=== PATIENT | female | born 1975 | race African-American/Black ===

== ENCOUNTER 2016-12-31 12:30 | Emergency (ER) | payer OTHER ==
[2016-12-31 13:22] LABS: BASOPHIL 0.2 % (0-2); EOSINOPHIL 1.9 % (0-5); HCT 32.3 % (37.0-47.0); HGB 10.4 g/dl (12.5-16.0); LYMPHOCYTE 18.7 % (15-48); MCH 21.5 pg (25.0-31.0); MCHC 32.2 g/dL (32.0-36.0); MCV 66.7 fL (78.0-100.0); MONOCYTE 4.4 % (0-12); MPV 9.8 fL (6.0-9.5); NEUTROPHIL 74.8 % (41-80); PLT 322 K/uL (150-400); RBC 4.84 M/uL (4.20-5.40); RDW 17.1 % (11.5-14.0); WBC 17.8 K/uL (4.0-10.5)
[2016-12-31 13:36] LABS: ALBUMIN 3.9 g/dL (3.5-5.0); BILIRUBIN - TOTAL 0.2 mg/dL (0.1-1.0); GLOBULIN (CALCULATION) 2.9 g/dL (2.2-4.2); POTASSIUM 3.7 mmol/L (3.5-5.1); TOTAL PROTEIN 6.8 g/dL (6.4-8.3)
== END 2016-12-31 19:20 | disposition home or self-care (01) ==
LOC: FER 12:30
PROVIDERS: Emergency Medicine
DX: R06.02 Shortness of breath (principal); R05 Cough
CPT/HCPCS: 36415; 36600; 71020; 78579; 78580; 80053; 82803; 84484; 85025; 85379; 93005; 94640; A9539; A9540

== ENCOUNTER 2017-01-05 10:48 | Emergency (ER) | payer OTHER ==
[2017-01-05 11:54] LABS: BASOPHIL 0.7 % (0-2); EOSINOPHIL 6.3 % (0-5); HCT 31.5 % (37.0-47.0); HGB 10.3 g/dl (12.5-16.0); LYMPHOCYTE 34.2 % (15-48); MCH 21.9 pg (25.0-31.0); MCHC 32.7 g/dL (32.0-36.0); MPV 10.2 fL (6.0-9.5); NEUTROPHIL 52.8 % (41-80); PLT 334 K/uL (150-400); RDW 17.1 % (11.5-14.0); WBC 7.7 K/uL (4.0-10.5)
[2017-01-05 13:31] LABS: ALBUMIN 3.8 g/dL (3.5-5.0); BILIRUBIN - TOTAL 0.2 mg/dL (0.1-1.0); CREATININE 1.2 mg/dL (0.5-1.0); GLOBULIN (CALCULATION) 3.4 g/dL (2.2-4.2); POTASSIUM 3.8 mmol/L (3.5-5.1); TOTAL PROTEIN 7.2 g/dL (6.4-8.3)
== END 2017-01-05 14:09 | disposition home or self-care (01) ==
LOC: FER 10:48
PROVIDERS: Internal Medicine
DX: J42 Unspecified chronic bronchitis (principal); E11.9 Type 2 diabetes mellitus without complications; E66.9 Obesity, unspecified; E78.5 Hyperlipidemia, unspecified; Z87.891 Personal history of nicotine dependence; Z88.1 Allergy status to other antibiotic agents; Z88.2 Allergy status to sulfonamides; Z88.5 Allergy status to narcotic agent; Z79.51 Long term (current) use of inhaled steroids; Z79.4 Long term (current) use of insulin; Z79.899 Other long term (current) drug therapy
CPT/HCPCS: 36415; 71020; 80053; 83880; 85025; 93005

== ENCOUNTER 2020-10-25 16:25 | Inpatient (IN) | payer MEDICARE, OTHER ==
[~2020-10-25 16:25] MED LIST: ACETAMINOPHEN500 M1 PO; ASPIRIN CHEWABL81 MG PO; ATARAX25 MG PO; ATROVENT HFA12.9 GM INH; AUGMENTIN 875-1 EACH PO; AZITHROMYCIN250 MG PO; BACLOFEN 10MG T10 MG PO; BREO ELLIPTA 11 EACH NEB; BUMETANIDE1 MG PO; BUSPIRONE HCL15 MG PO; CARDURA4 MG PO; CETIRIZINE HCL10 MG PO; CHLORTHALIDONE25 MG PO; CHLORTHALIDONE50 MG MT; COLCRYS0.6 MG PO; COZAAR100 MG PO; DICLOFENAC SODI25 MG PO; DOXYCYCLINE MO100 M1 PO; DUONEB 2.5-0.5M1 AMP INH; FEOSOL325 M1 PO; FLORANEX TABLE1 EACH PO; HUMALOG JU100 UNIT/1 SC; HUMULOG SC; HYDROXYZINE HCL50 MG PO; K-DUR20 MEQ PO; KEFLEX500 MG PO; LIPITOR40 MG PO; LOPRESSOR25 MG PO; LYRICA 50MG CAP50 MG PO; LYRICA300 MG PO; MAG-OXIDE 400M400 MG PO; MOBIC7.5 MG PO; MOTRIN600 MG PO; NORCO 5-325 TA1 EACH PO; NORVASC10 MG PO; NORVASC5 MG PO; NYSTOP TOPICAL30 GM TOP; OXYCODONE-ACET1 EAC1 PO; PERCOCET 5-3251 EACH PO; POTASSIUM CHLO10 ME1 PO; POTASSIUM CHLO20 ME2 PO; PRAVACHOL20 MG PO; PRAVASTATIN SOD20 MG PO; PREDNISONE 20MG20 MG PO; PROTONIX 40MG T40 MG PO; PROTONIX40 MG PO; PROVENTIL HFA6.7 GM INH; SERTRALINE HCL50 MG PO; SINGULAIR10 MG PO; SKELAXIN800 MG PO; SPIRIVA18 MCG NEB; SPIRONOLACTONE50 MG MT; TAMIFLU 75MG CA75 MG PO; TRAZODONE 100M100 MG PO; TRESIBA FL100 UNIT/1 SC; TRESIBA100 UNIT/1 SC; TRULICITY1.5 MG/0.5 SC; TYLENOL PO; TYLENOL WITH C1 EAC1 PO; VENTOLIN HFA IN18 GM INH; VIBRAMYCIN100 MG PO; ZANAFLEX2 MG PO; ZOFRAN4 MG PO; ZOLOFT50 MG PO; [UNRECOGNIZED DRUG - OTHER] SC
[2020-10-25 17:32] LABS: BASOPHIL 0.5 % (0-2); EOSINOPHIL 3.1 % (0-5); HGB 7.9 g/dl (12.5-16.0); LYMPHOCYTE 18.6 % (15-48); MCHC 29.3 g/dL (32.0-36.0); MCV 71.6 fL (78.0-100.0); MONOCYTE 11.8 % (0-12); MPV 11.1 fL (6.0-9.5); NEUTROPHIL 63.6 % (41-80); NRBC 0.2; PLT 363 K/uL (150-400); RBC 3.77 M/uL (4.20-5.40); RDW 19.7 % (11.5-14.0)
[2020-10-25 17:42] LABS: BUN/CREAT RATIO (CALC) 29.2 RATIO; CREATININE 1.3 mg/dL (0.51-0.95); POTASSIUM 4.9 mmol/L (3.5-5.1)
[2020-10-25 17:43] LABS: BILIRUBIN NEGATIVE (NEGATIVE); BLOOD 2+ Ery/uL (NEGATIVE); CLARITY CLOUDY (CLEAR); COLOR YELLOW (YELLOW); GLUCOSE (U) NORMAL (NORMAL); LEUKOCYTES 3+ Leu/uL (NEGATIVE); NITRITE NEGATIVE (NEGATIVE); PROTEIN NEGATIVE (NEGATIVE); SPECIFIC GRAVITY 1.015 (1.001-1.030); UROBILINOGEN 0.2 mg/dL (0.2-1.0)
[2020-10-25 17:47] LABS: URINARY WBC TNTC
[2020-10-25 17:48] LABS: BACTERIA 3+; SQUAMOUS EPITHELIAL CELLS RARE
[2020-10-25] MEDS ORDERED: NORVASC5 MG PO (23:03)
[2020-10-25] MEDS ORDERED: LIPITOR40 MG PO (23:04)
[2020-10-25] MEDS ORDERED: BACLOFEN 10MG T10 MG PO ×2 (23:05→23:06)
[2020-10-25] MEDS ORDERED: COREG 6.25MG6.25 MG PO (23:07)
[2020-10-25] MEDS ORDERED: FEOSOL325 MG PO (23:16)
[2020-10-25] MEDS ORDERED: CYMBALTA 30MG C30 MG PO (23:16)
[2020-10-25] MEDS ORDERED: ACIDOPHILUS LA1 EAC1 PO (23:18)
[2020-10-25] MEDS ORDERED: NORCO 5-325 TA1 EACH PO (23:20)
[2020-10-25] MEDS ORDERED: SYNTHROID50 MCG PO (23:22)
[2020-10-25] MEDS ORDERED: COZAAR100 MG PO (23:23)
[2020-10-25] MEDS ORDERED: REMERON15 MG PO (23:24)
[2020-10-25] MEDS ORDERED: MAG-OXIDE 400M400 MG PO (23:24)
[2020-10-25] MEDS ORDERED: SINGULAIR10 MG PO (23:25)
[2020-10-25] MEDS ORDERED: NYSTATIN 30GM C30 GM TOP (23:25)
[2020-10-25] MEDS ORDERED: LYRICA 50MG CAP50 MG PO (23:26)
[2020-10-25] MEDS ORDERED: SANTYL15 GM TOP (23:27)
[2020-10-25] MEDS ORDERED: VANCOMYCIN IV (23:28)
[2020-10-25] MEDS ORDERED: NOVOLOG DO100 UNIT/M SC (23:31)
[2020-10-25] MEDS ORDERED: LEVEMIR VI100 UNITS/ SC (23:32)
--- NOTE | 2020-10-26 15:06 | NUR ---
CATH FLOW GIVEN THRU PICC LINE D/T UNABLE TO DRAW LABS. PINK WORKING NOW, WHITE STILL NO BLOOD RETURN. WILL NOTIFY LAB TO SEND TUBES FOR LABS
[2020-10-26 15:36] LABS: BASOPHIL 0.6 % (0-2); EOSINOPHIL 3.9 % (0-5); HCT 23.6 % (37.0-47.0); LYMPHOCYTE 17.9 % (15-48); MCH 20.5 pg (25.0-31.0); MCHC 29.7 g/dL (32.0-36.0); MCV 69.2 fL (78.0-100.0); MONOCYTE 9.2 % (0-12); MPV 10.1 fL (6.0-9.5); NEUTROPHIL 65.3 % (41-80); NRBC 0; PLT 309 K/uL (150-400); RBC 3.41 M/uL (4.20-5.40); RDW 19.1 % (11.5-14.0)
[2020-10-26 15:51] LABS: BUN/CREAT RATIO (CALC) 32.5 RATIO; CREATININE 0.83 mg/dL (0.51-0.95); POTASSIUM 3.6 mmol/L (3.5-5.1)
[2020-10-26 19:02] LABS: HCT 23.6 % (37.0-47.0); MCH 20.5 pg (25.0-31.0); MCHC 29.7 g/dL (32.0-36.0); MCV 69.2 fL (78.0-100.0); MPV 10.6 fL (6.0-9.5); RBC 3.41 M/uL (4.20-5.40); RETICULOCYTE COUNT 2.4 % (1.0-2.0); WBC 10.3 K/uL (4.0-10.5)
[2020-10-26 19:18] LABS: IRON % SATURATION 26.3 %SAT (20-50)
[2020-10-26 19:45] LABS: FOLIC ACID (SERUM) 4.6 ng/mL (8.6-58.9)
--- NOTE | 2020-10-26 20:06 | NUR ---
BLOOD RETURN FROM BOTH LUMENS TO PICC LINE NOW
[2020-10-27 03:42] LABS: BASOPHIL 0.5 % (0-2); EOSINOPHIL 3.6 % (0-5); HCT 22.5 % (37.0-47.0); HGB 6.8 g/dl (12.5-16.0); LYMPHOCYTE 22.3 % (15-48); MCH 20.9 pg (25.0-31.0); MCHC 30.2 g/dL (32.0-36.0); MCV 69.2 fL (78.0-100.0); MONOCYTE 10.9 % (0-12); MPV 10.3 fL (6.0-9.5); NEUTROPHIL 59.5 % (41-80); NRBC 0; PLT 331 K/uL (150-400); RBC 3.25 M/uL (4.20-5.40)
[2020-10-27 03:58] LABS: BUN/CREAT RATIO (CALC) 26.4 RATIO; CREATININE 0.91 mg/dL (0.51-0.95); MAGNESIUM 0.8 mg/dL (1.8-2.4); POTASSIUM 3.2 mmol/L (3.5-5.1)
--- NOTE | 2020-10-27 11:30 | NUR ---
LIVES AT [facility]; PLEASE ADVISE OF ANY D/C NEEDS WILL HAVE TO CONTACT [facility] TO MAKE SURE PT OK OT COME BACK
[2020-10-28 03:35] LABS: BASOPHIL 0.7 % (0-2); HCT 27.2 % (37.0-47.0); HGB 8.3 g/dl (12.5-16.0); LYMPHOCYTE 18.7 % (15-48); MCH 22.4 pg (25.0-31.0); MCHC 30.5 g/dL (32.0-36.0); MCV 73.3 fL (78.0-100.0); MONOCYTE 10.3 % (0-12); MPV 10.2 fL (6.0-9.5); NEUTROPHIL 63.2 % (41-80); NRBC 0; PLT 299 K/uL (150-400); RBC 3.71 M/uL (4.20-5.40); WBC 11.5 K/uL (4.0-10.5)
[2020-10-28 03:51] LABS: BUN/CREAT RATIO (CALC) 20.4 RATIO; CREATININE 0.98 mg/dL (0.51-0.95); POTASSIUM 3.2 mmol/L (3.5-5.1)
[2020-10-28 03:58] LABS: MAGNESIUM 1.2 mg/dL (1.8-2.4)
[2020-10-29 00:51] LABS: BILIRUBIN NEGATIVE (NEGATIVE); BLOOD 1+ Ery/uL (NEGATIVE); CLARITY CLEAR (CLEAR); COLOR YELLOW (YELLOW); GLUCOSE (U) NORMAL (NORMAL); LEUKOCYTES 1+ Leu/uL (NEGATIVE); NITRITE NEGATIVE (NEGATIVE); PROTEIN TRACE (LOW) mg/dL (NEGATIVE); SPECIFIC GRAVITY 1.015 (1.001-1.030); UROBILINOGEN 0.2 mg/dL (0.2-1.0)
[2020-10-29 01:02] LABS: BACTERIA 1+; YEAST PRESENT
[2020-10-29 02:03] LABS: BASOPHIL 0.6 % (0-2); LYMPHOCYTE 17.4 % (15-48); MCH 22.5 pg (25.0-31.0); MCHC 30.8 g/dL (32.0-36.0); MCV 73.2 fL (78.0-100.0); MONOCYTE 10.2 % (0-12); MPV 10.4 fL (6.0-9.5); NRBC 0.2; PLT 313 K/uL (150-400); RBC 3.55 M/uL (4.20-5.40); WBC 12.8 K/uL (4.0-10.5)
[2020-10-29 02:22] LABS: BUN/CREAT RATIO (CALC) 14.5 RATIO; CREATININE 1.17 mg/dL (0.51-0.95); PHOSPHORUS 3.9 mg/dL (2.6-4.7)
[2020-10-29 02:27] LABS: MAGNESIUM 1.6 mg/dL (1.8-2.4)
--- NOTE | 2020-10-29 17:57 | NUR ---
10/29/20 Ms. Retana states that she does not wish to return to [facility]. Other facilities / options were discussed. Ms. Retana prefers [facility] and [facility] as a second choice. She declined facilities in [place], [facility], or [place]. Referrals have been made to [facility].
[2020-10-30 05:16] LABS: BASOPHIL 0.5 % (0-2); EOSINOPHIL 4.5 % (0-5); HCT 26.9 % (37.0-47.0); HGB 8.1 g/dl (12.5-16.0); LYMPHOCYTE 13.2 % (15-48); MCH 22.2 pg (25.0-31.0); MCHC 30.1 g/dL (32.0-36.0); MCV 73.7 fL (78.0-100.0); MONOCYTE 8.9 % (0-12); MPV 9.9 fL (6.0-9.5); NEUTROPHIL 68.5 % (41-80); NRBC 0; PLT 292 K/uL (150-400); RBC 3.65 M/uL (4.20-5.40); RDW 21.8 % (11.5-14.0); WBC 11.1 K/uL (4.0-10.5)
[2020-10-30 05:43] LABS: BUN/CREAT RATIO (CALC) 13.6 RATIO; C-REACTIVE PROTEIN 3.8 mg/dL (<=0.90); CREATININE 1.03 mg/dL (0.51-0.95)
[2020-10-31 03:59] LABS: BUN/CREAT RATIO (CALC) 13.5 RATIO; C-REACTIVE PROTEIN 4.3 mg/dL (<=0.90); CREATININE 0.89 mg/dL (0.51-0.95); POTASSIUM 3.3 mmol/L (3.5-5.1)
[2020-10-31 04:11] LABS: BASOPHIL 0.6 % (0-2); EOSINOPHIL 4.2 % (0-5); HCT 27.1 % (37.0-47.0); HGB 8.2 g/dl (12.5-16.0); LYMPHOCYTE 17.4 % (15-48); MCH 22.4 pg (25.0-31.0); MCHC 30.3 g/dL (32.0-36.0); MPV 10.5 fL (6.0-9.5); NRBC 0.2; PLT 292 K/uL (150-400); RBC 3.66 M/uL (4.20-5.40); RDW 22.4 % (11.5-14.0); WBC 10.7 K/uL (4.0-10.5)
--- NOTE | 2020-10-31 15:36 | NUR ---
SPOKE WITH PT. SHE STATED THAT SHE DID WANT TO GO BACK TO [facility], BUT WANTED TO STAY IN [place] SO THAT SHE COULD BE CLOSE TO HER MOTHER. I HAVE SPOKEN WITH SOL AT [facility] AND THEY WILL NOT ACCEPT MEDICAID PENDING. CONTACTED THE SON, ADVISED HIM OF WHAT HIS MOTHER HAD TOLD ME REGARDING STAYIN CLOSE TO HER MOTHER. MR. PEREZ ADVISED THAT HIS GRANDMOTHER IS . I EXPLAINED THAT [facility] WILL NOT ACCEPT HIS MOTHER WITH MEDICAID PENDING. MR. PEREZ STATED THAT HIS MOTHER NEEDED TO GO BACK TO [facility].. TC TO HUNTER AT [facility] SHE ADVIED THAT THEY WILL ACCEPT PT. BACK TO [facility], BUT SHE NEEDS A COVID TEST. ADVISED DR. MENDEZ OF THIS INFORMATION.
[2020-11-01 04:22] LABS: BASOPHIL 0.3 % (0-2); EOSINOPHIL 4.3 % (0-5); HCT 25.3 % (37.0-47.0); HGB 7.6 g/dl (12.5-16.0); MCH 22.4 pg (25.0-31.0); MCV 74.4 fL (78.0-100.0); MONOCYTE 11.3 % (0-12); MPV 10.6 fL (6.0-9.5); NEUTROPHIL 58.2 % (41-80); NRBC 0; PLT 265 K/uL (150-400); RDW 22.6 % (11.5-14.0); WBC 10.2 K/uL (4.0-10.5)
[2020-11-01 04:38] LABS: BUN/CREAT RATIO (CALC) 11.1 RATIO; C-REACTIVE PROTEIN 5.2 mg/dL (<=0.90); CREATININE 0.81 mg/dL (0.51-0.95); POTASSIUM 3.5 mmol/L (3.5-5.1)
--- NOTE | 2020-11-01 10:44 | NUR ---
11/01/20 Luca Carlos, FINAL TESTER, and this hospital social worker informed Ms. Retana of [facility]'s denial and her son's preference for her to return to [place]. Ms. Retana has agreed to return to [place]. - Luca Carlos, arranged a facetime meeting between Ms. Retana and ANDERS Pulido, . Ms. Loza informed Ms. Retana that she is investigating her concerns at [place].
--- NOTE | 2020-11-01 15:19 | NUR ---
PATIENT WAS LAYING IN BED WITH PHONE TO HER EAR TALKING WITH FAMILY, I WENT INTO THE ROOM TO GIVE MEDICATIONS AND SHE ASKED FOR ME TO REMOVE THE PHONE FROM HER EAR. I TALKED TO THE PATIENT THAT SHE NEEDED TO WORK HER HANDS AND FINGERS, THAT SHE NEEDED TO GET TO A POINT OF FEEDING HERSELF AND DOING SIMPLE THINGS LIKE TALKING ON THE PHONE. SHE LIFTED HER HAND ABOUT 3 INCHES AND MOVED HER FINGERS IN AND OUT, BUT THEN STATED THAT SHE COULD NOT PUT THE PNONE UP. THEN WHEN I HELPED AND PLACED HER HAND TO THE PHONE AND ASKED HER TO GRAP THE PHONE SHE WOULD NOT DO IT. I EXPLAINED THAT IF SHE DID NOT USE HER MUSCLES THAT SHE WAS GOING TO LOSE THEM.
[2020-11-02 05:16] LABS: BASOPHIL 0.4 % (0-2); EOSINOPHIL 4.4 % (0-5); HCT 25.8 % (37.0-47.0); HGB 7.9 g/dl (12.5-16.0); LYMPHOCYTE 25.7 % (15-48); MCH 22.4 pg (25.0-31.0); MCHC 30.6 g/dL (32.0-36.0); MCV 73.1 fL (78.0-100.0); MONOCYTE 8.1 % (0-12); MPV 11.6 fL (6.0-9.5); NEUTROPHIL 58.4 % (41-80); NRBC 0; PLT 260 K/uL (150-400); RBC 3.53 M/uL (4.20-5.40); RDW 22.4 % (11.5-14.0); WBC 10.2 K/uL (4.0-10.5)
[2020-11-02 05:24] LABS: BUN/CREAT RATIO (CALC) 8.3 RATIO; C-REACTIVE PROTEIN 6.5 mg/dL (<=0.90); CREATININE 0.72 mg/dL (0.51-0.95); POTASSIUM 2.5 mmol/L (3.5-5.1)
--- NOTE | 2020-11-02 17:47 | NUR ---
11/02/20 Discharge to [place] is anticipated for 11/03/20. A negative test within 72 hours of return is required. Report given to MS ION Landeros and Dr. Campbell.
[2020-11-03 03:15] LABS: BASOPHIL 0.4 % (0-2); EOSINOPHIL 4.2 % (0-5); HCT 24.6 % (37.0-47.0); HGB 7.6 g/dl (12.5-16.0); LYMPHOCYTE 27.3 % (15-48); MCH 22.4 pg (25.0-31.0); MCHC 30.9 g/dL (32.0-36.0); MCV 72.6 fL (78.0-100.0); MONOCYTE 9.6 % (0-12); NEUTROPHIL 55.9 % (41-80); NRBC 0; PLT 252 K/uL (150-400); RBC 3.39 M/uL (4.20-5.40); RDW 22.3 % (11.5-14.0)
[2020-11-03 03:16] LABS: WBC 9.2 K/uL (4.0-10.5)
[2020-11-03 03:30] LABS: BUN/CREAT RATIO (CALC) 7.6 RATIO; C-REACTIVE PROTEIN 5.8 mg/dL (<=0.90); CREATININE 0.79 mg/dL (0.51-0.95); POTASSIUM 3.2 mmol/L (3.5-5.1)
[2020-11-04 05:25] LABS: BASOPHIL 0.3 % (0-2); EOSINOPHIL 0 % (0-5); HCT 27.3 % (37.0-47.0); HGB 8.3 g/dl (12.5-16.0); LYMPHOCYTE 20.3 % (15-48); MCH 22.1 pg (25.0-31.0); MCHC 30.4 g/dL (32.0-36.0); MCV 72.6 fL (78.0-100.0); MONOCYTE 4.8 % (0-12); MPV 10.8 fL (6.0-9.5); NEUTROPHIL 69.8 % (41-80); NRBC 0; PLT 276 K/uL (150-400); RBC 3.76 M/uL (4.20-5.40); RDW 22.3 % (11.5-14.0); WBC 7.7 K/uL (4.0-10.5)
[2020-11-04 06:19] LABS: ALBUMIN 1.6 g/dL (3.4-5.0); BILIRUBIN - TOTAL 0.2 mg/dL (0.2-1.0); BUN/CREAT RATIO (CALC) 10.6 RATIO; C-REACTIVE PROTEIN 5.7 mg/dL (<=0.90); CREATININE 0.66 mg/dL (0.51-0.95); GLOBULIN (CALCULATION) 5.2 g/dL; POTASSIUM 3.6 mmol/L (3.5-5.1); TOTAL PROTEIN 6.8 g/dL (6.4-8.2)
[2020-11-05 03:42] LABS: BASOPHIL 0.1 % (0-2); EOSINOPHIL 0 % (0-5); HCT 27.5 % (37.0-47.0); HGB 8.6 g/dl (12.5-16.0); LYMPHOCYTE 19.9 % (15-48); MCH 22.4 pg (25.0-31.0); MCHC 31.3 g/dL (32.0-36.0); MCV 71.6 fL (78.0-100.0); MONOCYTE 7.1 % (0-12); MPV 10.1 fL (6.0-9.5); NEUTROPHIL 70.1 % (41-80); NRBC 0; PLT 310 K/uL (150-400); RBC 3.84 M/uL (4.20-5.40); RDW 22.1 % (11.5-14.0); WBC 8.3 K/uL (4.0-10.5)
[2020-11-05 04:35] LABS: ALBUMIN 1.7 g/dL (3.4-5.0); BILIRUBIN - TOTAL 0.2 mg/dL (0.2-1.0); BUN/CREAT RATIO (CALC) 18.9 RATIO; C-REACTIVE PROTEIN 3.3 mg/dL (<=0.90); CREATININE 0.53 mg/dL (0.51-0.95); GLOBULIN (CALCULATION) 5.5 g/dL; POTASSIUM 2.7 mmol/L (3.5-5.1); TOTAL PROTEIN 7.2 g/dL (6.4-8.2)
--- NOTE | 2020-11-05 09:44 | NUR ---
11/05/20 Ms. Retana has a positive COVID test. [facility] was informed and patient may return to [facility].
--- NOTE | 2020-11-05 12:12 | NUR ---
11/05/20 Discharge is anticipated for 11/06/20. Bailey Subramanian reports patient is approved for return. Report given to MS ION Fox
[2020-11-06 04:04] LABS: BASOPHIL 0.1 % (0-2); EOSINOPHIL 0 % (0-5); HCT 27.4 % (37.0-47.0); HGB 8.5 g/dl (12.5-16.0); LYMPHOCYTE 16.7 % (15-48); MCH 22.2 pg (25.0-31.0); MCV 71.5 fL (78.0-100.0); MONOCYTE 7.7 % (0-12); MPV 10.9 fL (6.0-9.5); NEUTROPHIL 73.6 % (41-80); NRBC 0; PLT 376 K/uL (150-400); RBC 3.83 M/uL (4.20-5.40); WBC 9.6 K/uL (4.0-10.5)
[2020-11-06 06:59] LABS: BUN/CREAT RATIO (CALC) 23.4 RATIO; CREATININE 0.47 mg/dL (0.51-0.95); MAGNESIUM 0.9 mg/dL (1.8-2.4); POTASSIUM 3.1 mmol/L (3.5-5.1)
--- NOTE | 2020-11-06 09:57 | NUR ---
PER PT. SHE IS RETURNING TO [facility]. SHE AND HER SON HAVE TALKED ABOUT HER RETURN TO [facility]. HER SON WANTED HER TO GO BACK TO [facility] AND HE WILL HELP HER GET CLOSER TO [place] AT A LATER TIME. ADVISED HER NURSE, SHAHAB AND DR. SARMIENTO OF PT. REQUEST TO RETURN TO [facility].
[2020-11-06] MEDS ORDERED: HUMULIN R100 UNIT/2 SC (16:57)
[2020-11-06] MEDS ORDERED: DAKIN'S 1/4 ST480 ML XX (17:13)
[2020-11-06] MEDS ORDERED: BETADINE30 ML TOP (17:13)
[2020-11-06] MEDS ORDERED: DECADRON4 MG PO (17:15)
--- NOTE | 2020-11-07 08:52 | NUR ---
TC TO JAMES WALSH, APS WORKER. ADVISED HER THAT PT. WOULD BE RETURNING TO [facility] AND TO PLEASE STAY IN CONTACT WITH PT. SHE WAS UNCOMFORTABLE GOING BACK TO [facility]. ADVISED HER TO PLEASE CONTACT [facility]. JAMES HAS THE MS. GONGORA'S PHONE NUMBER WELL HER SON'S PHONE NUMBER.
--- NOTE | 2020-11-07 10:04 | NUR ---
0805 THIS RN CALLED REPORT TO REBEKAH LEMON AT [facility] MD DUTTON TO KEEP PICC LINE IN PLACE AT D/C 0845 EMS ARRIVED AND TOOK PATIENT TO [facility]
== END 2020-11-07 08:45 | DRG 682 ==
LOC: FER 16:25 → FMS 20:11
PROVIDERS: Internal Medicine; Nurse Practitioner Family; ADMIT Hospitalist
PROC: 30233N1 Transfusion of Nonautologous Red Blood Cells into Peripheral Vein, Percutaneous Approach (ICD-10-PCS; principal; 2020-10-27)
PROC: 30233R1 Transfusion of Nonautologous Platelets into Peripheral Vein, Percutaneous Approach (ICD-10-PCS; 2020-10-27)
PROC: XW033E5 Introduction of Remdesivir Anti-infective into Peripheral Vein, Percutaneous Approach, New Technology Group 5 (ICD-10-PCS; 2020-11-03)
PROC: 3E0333Z Introduction of Anti-inflammatory into Peripheral Vein, Percutaneous Approach (ICD-10-PCS; 2020-11-03)
PROC: 8E0ZXY6 Isolation (ICD-10-PCS; 2020-11-03)
DX: N17.9 Acute kidney failure, unspecified (principal); G93.41 Metabolic encephalopathy; L89.154 Pressure ulcer of sacral region, stage 4; L89.893 Pressure ulcer of other site, stage 3; U07.1 COVID-19; J12.82 Pneumonia due to coronavirus disease 2019; J96.01 Acute respiratory failure with hypoxia; N30.00 Acute cystitis without hematuria; Z68.43 Body mass index [BMI] 50.0-59.9, adult; D50.9 Iron deficiency anemia, unspecified; I12.9 Hypertensive chronic kidney disease with stage 1 through stage 4 chronic kidney disease, or unspecified chronic kidney disease; N18.9 Chronic kidney disease, unspecified; E11.22 Type 2 diabetes mellitus with diabetic chronic kidney disease; E78.5 Hyperlipidemia, unspecified; G47.33 Obstructive sleep apnea (adult) (pediatric); E11.42 Type 2 diabetes mellitus with diabetic polyneuropathy; F32.9 Major depressive disorder, single episode, unspecified; F41.9 Anxiety disorder, unspecified; E66.01 Morbid (severe) obesity due to excess calories; M79.7 Fibromyalgia; F17.210 Nicotine dependence, cigarettes, uncomplicated; Z88.1 Allergy status to other antibiotic agents; Z88.5 Allergy status to narcotic agent; Z88.2 Allergy status to sulfonamides; Z88.8 Allergy status to other drugs, medicaments and biological substances; Z79.899 Other long term (current) drug therapy; Z79.4 Long term (current) use of insulin; L89.622 Pressure ulcer of left heel, stage 2; L89.612 Pressure ulcer of right heel, stage 2; L89.892 Pressure ulcer of other site, stage 2; E87.6 Hypokalemia
CPT/HCPCS: 36415; 36430; 36600; 71045; 80048; 80053; 80202; 81001; 82607; 82728; 82746; 82803; 82962; 83540; 83550; 83605; 83735; 83880; 84100; 84145; 85025; 86140; 86850; 86900; 86901; 86922; 87088; 94010; 96365; 97110; 97162; 97167; 97530-GP; 97535; C9399; J0692; J1170; J1650; J2405; J2543; J2916; J2997; J3370; J3475; J7030; J7040; J7050; J8540; P9016; U0002

== ENCOUNTER 2020-11-19 18:12 | Inpatient (IN) | payer MEDICARE, OTHER ==
[~2020-11-19 18:12] MED LIST changes: +ACIDOPHILUS LA1 EAC1 PO; +BETADINE30 ML TOP; +COREG 6.25MG6.25 MG PO; +CYMBALTA 30MG C30 MG PO; +DAKIN'S 1/4 ST480 ML XX; +DECADRON4 MG PO; +FEOSOL325 MG PO; +HUMULIN R100 UNIT/2 SC; +LEVEMIR VI100 UNITS/ SC; +NOVOLOG DO100 UNIT/M SC; +NYSTATIN 30GM C30 GM TOP; +REMERON15 MG PO; +SANTYL15 GM TOP; +SYNTHROID50 MCG PO; +VANCOMYCIN IV
[2020-11-19 19:54] LABS: BASOPHIL 0.3 % (0-2); EOSINOPHIL 1.9 % (0-5); HCT 26.1 % (37.0-47.0); HGB 7.9 g/dl (12.5-16.0); LYMPHOCYTE 11.3 % (15-48); MCH 22.1 pg (25.0-31.0); MCHC 30.3 g/dL (32.0-36.0); MCV 73.1 fL (78.0-100.0); MONOCYTE 7.2 % (0-12); MPV 10.9 fL (6.0-9.5); NRBC 0; PLT 291 K/uL (150-400); RBC 3.57 M/uL (4.20-5.40); RDW 22.1 % (11.5-14.0); WBC 22.4 K/uL (4.0-10.5)
[2020-11-19 20:00] LABS: BARBITURATES NEGATIVE (NEGATIVE); ECSTASY (MDMA) NEGATIVE (NEGATIVE); MARIJUANA (THC) NEGATIVE (NEGATIVE); METHADONE NEGATIVE (NEGATIVE); OPIATES POSITIVE (NEGATIVE)
[2020-11-19 20:01] LABS: AMPHETAMINES NEGATIVE (NEGATIVE); OXYCODONE POSITIVE (NEGATIVE)
[2020-11-19 20:02] LABS: CLARITY TURBID (CLEAR); COLOR YELLOW (YELLOW)
[2020-11-19 20:03] LABS: BILIRUBIN 1+ mg/dL (NEGATIVE); BLOOD 3+ Ery/uL (NEGATIVE); GLUCOSE (U) NORMAL (NORMAL); PROTEIN 2+ mg/dL (NEGATIVE)
[2020-11-19 20:04] LABS: BACTERIA 4+; LEUKOCYTES 3+ Leu/uL (NEGATIVE); MUCOUS MODERATE; NITRITE NEGATIVE (NEGATIVE); URINARY WBC TNTC; UROBILINOGEN 0.2 mg/dL (0.2-1.0)
[2020-11-19 20:06] LABS: NEUTROPHIL 75.5 % (41-80)
[2020-11-19 20:12] LABS: INR 1.25 (0.9-1.2); PROTHROMBIN TIME 14.9 SECONDS (11.4-13.6)
[2020-11-19 20:13] LABS: PTT 44.2 SECONDS (22.2-34.7)
[2020-11-19 20:30] LABS: PRO-BNP 208 pg/mL (<125)
[2020-11-19 20:32] LABS: LACTIC ACID 0.6 mmol/L (0.4-1.9)
[2020-11-19 20:35] LABS: ALBUMIN 1.6 g/dL (3.4-5.0); BILIRUBIN - TOTAL 0.3 mg/dL (0.2-1.0); BUN/CREAT RATIO (CALC) 29.4 RATIO; CREATININE 1.09 mg/dL (0.51-0.95); GLOBULIN (CALCULATION) 5.7 g/dL; POTASSIUM 3.3 mmol/L (3.5-5.1); TOTAL PROTEIN 7.3 g/dL (6.4-8.2)
[2020-11-20] MEDS ORDERED: CLARITIN10 MG PO (06:05)
[2020-11-20] MEDS ORDERED: MULTI-VITAMIN1 EACH PO (06:06)
[2020-11-20] MEDS ORDERED: AQUAPHOR396 GM TOP (06:07)
[2020-11-20] MEDS ORDERED: ASCORBIC ACID500 MG PO (06:08)
[2020-11-20] MEDS ORDERED: ZINC50 MG PO (06:10)
[2020-11-20] MEDS ORDERED: VITAMIN D31250 MC1 PO (06:10)
[2020-11-20] MEDS ORDERED: FLORASTOR250 MG PO (06:13)
[2020-11-20] MEDS ORDERED: VICODIN 10/3251 EACH PO (06:16)
[2020-11-20 10:43] LABS: BASOPHIL 0.2 % (0-2); EOSINOPHIL 0 % (0-5); HCT 26.2 % (37.0-47.0); HGB 8.2 g/dl (12.5-16.0); LYMPHOCYTE 6.5 % (15-48); MCH 22.5 pg (25.0-31.0); MCHC 31.3 g/dL (32.0-36.0); MCV 71.8 fL (78.0-100.0); MONOCYTE 1.2 % (0-12); MPV 10.8 fL (6.0-9.5); NEUTROPHIL 86.6 % (41-80); NRBC 0; PLT 307 K/uL (150-400); RBC 3.65 M/uL (4.20-5.40); RDW 21.6 % (11.5-14.0); WBC 24.5 K/uL (4.0-10.5)
[2020-11-20 11:09] LABS: ALBUMIN 1.7 g/dL (3.4-5.0); BILIRUBIN - TOTAL 0.4 mg/dL (0.2-1.0); BUN/CREAT RATIO (CALC) 36.4 RATIO; CREATININE 0.66 mg/dL (0.51-0.95); MAGNESIUM 1.8 mg/dL (1.8-2.4); PHOSPHORUS 4.6 mg/dL (2.6-4.7); POTASSIUM 3.5 mmol/L (3.5-5.1); TOTAL PROTEIN 6.7 g/dL (6.4-8.2)
[2020-11-20 11:21] LABS: PRO-BNP 644 pg/mL (<125)
--- NOTE | 2020-11-20 12:46 | NUR ---
PT LIVES AT [facility]. [facility] CALLED AND THEY WILL ACCEPT HER BACK ONCE MEDICALLY STABLE. PLEASE ADVISE OF ANY DISCHARGE NEEDS
[2020-11-21 05:32] LABS: BASOPHIL 0.1 % (0-2); EOSINOPHIL 0 % (0-5); HCT 24.1 % (37.0-47.0); HGB 7.5 g/dl (12.5-16.0); LYMPHOCYTE 8.5 % (15-48); MCH 22.3 pg (25.0-31.0); MCHC 31.1 g/dL (32.0-36.0); MCV 71.5 fL (78.0-100.0); MONOCYTE 6.9 % (0-12); MPV 10.6 fL (6.0-9.5); NEUTROPHIL 76.6 % (41-80); NRBC 0; PLT 280 K/uL (150-400); RBC 3.37 M/uL (4.20-5.40); RDW 21.4 % (11.5-14.0); WBC 21.5 K/uL (4.0-10.5)
[2020-11-21 06:09] LABS: ALBUMIN 1.6 g/dL (3.4-5.0); BAND 4 % (0-10); BILIRUBIN - TOTAL 0.2 mg/dL (0.2-1.0); BUN/CREAT RATIO (CALC) 28.6 RATIO; CREATININE 0.49 mg/dL (0.51-0.95); GLOBULIN (CALCULATION) 5.3 g/dL; LYMPHOCYTE(M) 16 % (15-48); MICROCYTOSIS SLIGHT; MONOCYTE(M) 8 % (0-12); NEUTROPHILS(M) 72 % (41-80); PHOSPHORUS 2.7 mg/dL (2.6-4.7); POTASSIUM 2.9 mmol/L (3.5-5.1); TOTAL PROTEIN 6.9 g/dL (6.4-8.2)
[2020-11-21 06:10] LABS: MAGNESIUM 1.4 mg/dL (1.8-2.4)
[2020-11-21 06:39] LABS: PLATELET ESTIMATE NORMAL
[2020-11-21 06:40] LABS: PLATELET MORPHOLOGY NORMAL
[2020-11-21 09:17] LABS: RETICULOCYTE COUNT 0.9 % (1.0-2.0)
[2020-11-21 09:38] LABS: IRON % SATURATION 66.3 %SAT (20-50)
[2020-11-21 11:09] LABS: FOLIC ACID (SERUM) 2.1 ng/mL (8.6-58.9)
[2020-11-22 05:19] LABS: BASOPHIL 0.2 % (0-2); EOSINOPHIL 0.7 % (0-5); HCT 25.2 % (37.0-47.0); HGB 7.6 g/dl (12.5-16.0); LYMPHOCYTE 15.1 % (15-48); MCHC 30.2 g/dL (32.0-36.0); MONOCYTE 8.4 % (0-12); MPV 9.5 fL (6.0-9.5); NEUTROPHIL 70.8 % (41-80); NRBC 0; PLT 249 K/uL (150-400); RBC 3.45 M/uL (4.20-5.40); RDW 21.4 % (11.5-14.0)
[2020-11-22 05:33] LABS: WBC 20.4 K/uL (4.0-10.5)
[2020-11-22 05:41] LABS: BUN/CREAT RATIO (CALC) 21.3 RATIO; C-REACTIVE PROTEIN 9.4 mg/dL (<=0.90); CREATININE 0.47 mg/dL (0.51-0.95); MAGNESIUM 1.6 mg/dL (1.8-2.4); PHOSPHORUS 2.6 mg/dL (2.6-4.7); POTASSIUM 2.9 mmol/L (3.5-5.1)
[2020-11-24 04:26] LABS: BASOPHIL 0.2 % (0-2); EOSINOPHIL 2.7 % (0-5); HCT 24.1 % (37.0-47.0); HGB 7.4 g/dl (12.5-16.0); LYMPHOCYTE 12.5 % (15-48); MCH 22.3 pg (25.0-31.0); MCHC 30.7 g/dL (32.0-36.0); MCV 72.6 fL (78.0-100.0); MONOCYTE 5.4 % (0-12); MPV 10.7 fL (6.0-9.5); NEUTROPHIL 73.4 % (41-80); NRBC 0.1; PLT 265 K/uL (150-400); RBC 3.32 M/uL (4.20-5.40); RDW 21.5 % (11.5-14.0)
[2020-11-24 04:54] LABS: C-REACTIVE PROTEIN 13.8 mg/dL (<=0.90); CREATININE 0.5 mg/dL (0.51-0.95); MAGNESIUM 1.3 mg/dL (1.8-2.4); PHOSPHORUS 3.8 mg/dL (2.6-4.7); POTASSIUM 3.5 mmol/L (3.5-5.1)
[2020-11-25 04:11] LABS: BASOPHIL 0.3 % (0-2); EOSINOPHIL 3.1 % (0-5); HCT 24.2 % (37.0-47.0); HGB 7.4 g/dl (12.5-16.0); LYMPHOCYTE 13.8 % (15-48); MCHC 30.6 g/dL (32.0-36.0); MCV 71.8 fL (78.0-100.0); MONOCYTE 6.1 % (0-12); MPV 10.2 fL (6.0-9.5); NEUTROPHIL 70.2 % (41-80); NRBC 0; PLT 322 K/uL (150-400); RBC 3.37 M/uL (4.20-5.40); RDW 21.7 % (11.5-14.0); WBC 26.1 K/uL (4.0-10.5)
[2020-11-25 04:21] LABS: BASOPHIL(M) 0 % (0-2); MONOCYTE(M) 10 % (0-12); NEUTROPHILS(M) 72 % (41-80); TOTAL CELL COUNT 100
[2020-11-25 04:22] LABS: BAND 2 % (0-10); LYMPHOCYTE(M) 14 % (15-48); VARIANT LYMPHOCYTE 0
[2020-11-25 04:23] LABS: EOSINOPHIL(M) 2 % (0-5); PLATELET ESTIMATE NORMAL; PLATELET MORPHOLOGY N
[2020-11-25 04:51] LABS: ALBUMIN 1.5 g/dL (3.4-5.0); BILIRUBIN - TOTAL 0.2 mg/dL (0.2-1.0); BUN/CREAT RATIO (CALC) 15.6 RATIO; CREATININE 0.45 mg/dL (0.51-0.95); MAGNESIUM 1.2 mg/dL (1.8-2.4); PHOSPHORUS 3.5 mg/dL (2.6-4.7); POTASSIUM 3.8 mmol/L (3.5-5.1); TOTAL PROTEIN 6.5 g/dL (6.4-8.2)
[2020-11-26 03:18] LABS: BASOPHIL 0.3 % (0-2); EOSINOPHIL 4.4 % (0-5); HCT 23.2 % (37.0-47.0); HGB 7.1 g/dl (12.5-16.0); MCH 21.9 pg (25.0-31.0); MCHC 30.6 g/dL (32.0-36.0); MCV 71.6 fL (78.0-100.0); MPV 10.5 fL (6.0-9.5); NEUTROPHIL 66.9 % (41-80); NRBC 0; PLT 326 K/uL (150-400); RBC 3.24 M/uL (4.20-5.40); RDW 21.4 % (11.5-14.0); WBC 17.2 K/uL (4.0-10.5)
[2020-11-26 03:39] LABS: ALBUMIN 1.5 g/dL (3.4-5.0); BILIRUBIN - TOTAL 0.2 mg/dL (0.2-1.0); BUN/CREAT RATIO (CALC) 11.8 RATIO; CREATININE 0.51 mg/dL (0.51-0.95); GLOBULIN (CALCULATION) 4.6 g/dL; POTASSIUM 3.2 mmol/L (3.5-5.1); TOTAL PROTEIN 6.1 g/dL (6.4-8.2)
[2020-11-26 03:40] LABS: MAGNESIUM 1.8 mg/dL (1.8-2.4)
--- NOTE | 2020-11-26 19:13 | NUR ---
PHARMACY OK MEROPENEM AND HEP DRIP TOGETHER THROUGH Y SITE B/C PT IS HARD STICK LIMITED ACCESS
[2020-11-27 06:12] LABS: BASOPHIL 0.2 % (0-2); EOSINOPHIL 4.5 % (0-5); HCT 25.9 % (37.0-47.0); HGB 8.2 g/dl (12.5-16.0); MCH 23.2 pg (25.0-31.0); MCHC 31.7 g/dL (32.0-36.0); MCV 73.4 fL (78.0-100.0); MONOCYTE 9.4 % (0-12); MPV 10.2 fL (6.0-9.5); NEUTROPHIL 63.8 % (41-80); NRBC 0; PLT 378 K/uL (150-400); RBC 3.53 M/uL (4.20-5.40); RDW 21.7 % (11.5-14.0); WBC 16.8 K/uL (4.0-10.5)
[2020-11-27 06:33] LABS: BUN/CREAT RATIO (CALC) 13.3 RATIO; CREATININE 0.3 mg/dL (0.51-0.95); POTASSIUM 3.5 mmol/L (3.5-5.1)
[2020-11-28 05:52] LABS: BASOPHIL 0.3 % (0-2); EOSINOPHIL 3.4 % (0-5); HGB 8.4 g/dl (12.5-16.0); LYMPHOCYTE 16.6 % (15-48); MCH 23.2 pg (25.0-31.0); MCHC 31.1 g/dL (32.0-36.0); MCV 74.6 fL (78.0-100.0); MONOCYTE 9.9 % (0-12); MPV 9.9 fL (6.0-9.5); NEUTROPHIL 64.5 % (41-80); NRBC 0; PLT 431 K/uL (150-400); RBC 3.62 M/uL (4.20-5.40); RDW 22.2 % (11.5-14.0); WBC 19.6 K/uL (4.0-10.5)
[2020-11-28 06:10] LABS: BUN/CREAT RATIO (CALC) 15.2 RATIO; CREATININE 0.33 mg/dL (0.51-0.95); POTASSIUM 3.5 mmol/L (3.5-5.1)
--- NOTE | 2020-11-28 11:15 | NUR ---
PT HAD HEPARIN DRIP STOPPED 11/28/20 AT 0200 R/T POSSIBLE SURGICAL WOUND DEBRIDEMENT THIS MORNING. CONTACTED SURGERY WHO STATED THEY WILL NOT DO TODAY BUT POSSIBLY TOMORROW. PER HEPARIN DRIP IS TO CONTINUE AT THE THERAPUTIC RATE OF 9.8ML/HR OR 984 UNITS/HR. LAST PTT 11/28/20 0530 WAS 51.9. NEXT PTT DRAW IS 11/29/20 @ 0500.
--- NOTE | 2020-11-28 18:07 | NUR ---
11/28/20 Mr. Nixon, son, would like inquiry made with [facility] for possible admission. A referral was sent via [employer]. Discussion took place re: [facility] placement in [place] where Mr. Nixon lives. He prefers for Ms. Nixon to [facility] [place] [facility]
[2020-11-29 05:58] LABS: BASOPHIL 0.2 % (0-2); EOSINOPHIL 3.8 % (0-5); HCT 26.5 % (37.0-47.0); HGB 8.1 g/dl (12.5-16.0); LYMPHOCYTE 16.1 % (15-48); MCH 22.8 pg (25.0-31.0); MCHC 30.6 g/dL (32.0-36.0); MCV 74.4 fL (78.0-100.0); MONOCYTE 9.6 % (0-12); MPV 9.6 fL (6.0-9.5); NEUTROPHIL 66.3 % (41-80); NRBC 0; PLT 425 K/uL (150-400); RBC 3.56 M/uL (4.20-5.40); RDW 23.1 % (11.5-14.0)
[2020-11-29 07:05] LABS: ALBUMIN 1.5 g/dL (3.4-5.0); BILIRUBIN - TOTAL 0.2 mg/dL (0.2-1.0); BUN/CREAT RATIO (CALC) 21.9 RATIO; C-REACTIVE PROTEIN 12.3 mg/dL (<=0.90); CREATININE 0.32 mg/dL (0.51-0.95); GLOBULIN (CALCULATION) 4.9 g/dL; POTASSIUM 3.2 mmol/L (3.5-5.1); TOTAL PROTEIN 6.4 g/dL (6.4-8.2)
--- NOTE | 2020-11-30 05:06 | NUR ---
PT HEPARIN WAS TURNED OFF AT [address] JHAVERI
--- NOTE | 2020-11-30 05:20 | NUR ---
PT DRESSING CHANGED ORDERED
[2020-11-30 06:11] LABS: BASOPHIL 0.4 % (0-2); EOSINOPHIL 5.3 % (0-5); HCT 26.7 % (37.0-47.0); HGB 8.2 g/dl (12.5-16.0); LYMPHOCYTE 17.9 % (15-48); MCHC 30.7 g/dL (32.0-36.0); MONOCYTE 9.9 % (0-12); MPV 9.8 fL (6.0-9.5); NEUTROPHIL 62.4 % (41-80); NRBC 0; PLT 438 K/uL (150-400); RBC 3.56 M/uL (4.20-5.40); RDW 23.1 % (11.5-14.0); WBC 16.2 K/uL (4.0-10.5)
[2020-11-30 06:31] LABS: ALBUMIN 1.6 g/dL (3.4-5.0); BILIRUBIN - TOTAL 0.3 mg/dL (0.2-1.0); BUN/CREAT RATIO (CALC) 16.7 RATIO; C-REACTIVE PROTEIN 9.2 mg/dL (<=0.90); CREATININE 0.36 mg/dL (0.51-0.95); POTASSIUM 3.5 mmol/L (3.5-5.1); TOTAL PROTEIN 6.6 g/dL (6.4-8.2)
--- NOTE | 2020-11-30 10:42 | NUR ---
PT LEFT WITH OR NURSE FOR SURGERY FOR DEBRIDEMENT OF BUTTOCKS WOUNDS, SON NOTIFIED, VSS AT TIME OF TRANSFER, NO DISTRESS NOTED. REPORT GIVEN TO OR NURSE AND WILL GIVE REPORT TO MED/SHIP ENGINES OPERATING ENGINEERION TAN PT WILL BE GOING TO MED/SURG AFTER SURGICAL PROCEDURE.
[2020-12-01 07:40] LABS: BASOPHIL 0.5 % (0-2); EOSINOPHIL 6.6 % (0-5); HCT 26.6 % (37.0-47.0); HGB 8.2 g/dl (12.5-16.0); LYMPHOCYTE 14.4 % (15-48); MCHC 30.8 g/dL (32.0-36.0); MCV 74.7 fL (78.0-100.0); MONOCYTE 7.6 % (0-12); MPV 9.9 fL (6.0-9.5); NEUTROPHIL 68.2 % (41-80); NRBC 0; PLT 428 K/uL (150-400); RBC 3.56 M/uL (4.20-5.40); RDW 23.4 % (11.5-14.0); WBC 14.6 K/uL (4.0-10.5)
[2020-12-01 07:57] LABS: BUN/CREAT RATIO (CALC) 13.8 RATIO; C-REACTIVE PROTEIN 7.9 mg/dL (<=0.90); CREATININE 0.29 mg/dL (0.51-0.95); POTASSIUM 3.9 mmol/L (3.5-5.1)
[2020-12-02 04:50] LABS: BASOPHIL 0.2 % (0-2); EOSINOPHIL 4.7 % (0-5); HCT 25.9 % (37.0-47.0); HGB 7.9 g/dl (12.5-16.0); LYMPHOCYTE 19.8 % (15-48); MCH 22.8 pg (25.0-31.0); MCHC 30.5 g/dL (32.0-36.0); MCV 74.9 fL (78.0-100.0); MONOCYTE 8.9 % (0-12); MPV 9.8 fL (6.0-9.5); NEUTROPHIL 64.1 % (41-80); NRBC 0; PLT 397 K/uL (150-400); RBC 3.46 M/uL (4.20-5.40); WBC 13.3 K/uL (4.0-10.5)
[2020-12-02 05:05] LABS: BUN/CREAT RATIO (CALC) 16.7 RATIO; C-REACTIVE PROTEIN 7.2 mg/dL (<=0.90); CREATININE 0.36 mg/dL (0.51-0.95); POTASSIUM 3.1 mmol/L (3.5-5.1)
[2020-12-03 04:39] LABS: BASOPHIL 0.3 % (0-2); EOSINOPHIL 5.2 % (0-5); HCT 26.2 % (37.0-47.0); HGB 7.9 g/dl (12.5-16.0); LYMPHOCYTE 12.4 % (15-48); MCH 22.8 pg (25.0-31.0); MCHC 30.2 g/dL (32.0-36.0); MCV 75.5 fL (78.0-100.0); MONOCYTE 8.4 % (0-12); MPV 9.6 fL (6.0-9.5); NEUTROPHIL 72.6 % (41-80); NRBC 0; PLT 408 K/uL (150-400); RBC 3.47 M/uL (4.20-5.40); RDW 22.9 % (11.5-14.0)
[2020-12-03 04:45] LABS: BUN/CREAT RATIO (CALC) 19.4 RATIO; C-REACTIVE PROTEIN 8.8 mg/dL (<=0.90); CREATININE 0.36 mg/dL (0.51-0.95); POTASSIUM 3.3 mmol/L (3.5-5.1)
[2020-12-03] MEDS ORDERED: ELIQUIS5 MG PO (15:57)
[2020-12-03] MEDS ORDERED: SANTYL15 GM TOP (15:57)
[2020-12-03] MEDS ORDERED: LIDOCAINE PAIN1 EACH TOP (15:57)
[2020-12-03] MEDS ORDERED: HYDROCODON-ACE1 EAC6 PO (16:01)
== END 2020-12-03 19:25 | DRG 853 ==
LOC: FER 18:12 → FICU 11-20 00:43 → FTCU 11-22 09:16 → FMS 11-30 12:21
PROVIDERS: Emergency Medicine; Hospitalist; Internal Medicine; ADMIT Internal Medicine
PROC: 8E0ZXY6 Isolation (ICD-10-PCS; principal; 2020-11-20)
PROC: 30233N1 Transfusion of Nonautologous Red Blood Cells into Peripheral Vein, Percutaneous Approach (ICD-10-PCS; 2020-11-26)
PROC: 0QB30ZZ Excision of Left Pelvic Bone, Open Approach (ICD-10-PCS; 2020-11-30)
DX: A41.9 Sepsis, unspecified organism (principal); L89.894 Pressure ulcer of other site, stage 4; L89.154 Pressure ulcer of sacral region, stage 4; I26.99 Other pulmonary embolism without acute cor pulmonale; G93.41 Metabolic encephalopathy; J96.01 Acute respiratory failure with hypoxia; J96.02 Acute respiratory failure with hypercapnia; U07.1 COVID-19; J12.82 Pneumonia due to coronavirus disease 2019; N30.00 Acute cystitis without hematuria; N17.9 Acute kidney failure, unspecified; Z68.43 Body mass index [BMI] 50.0-59.9, adult; E66.01 Morbid (severe) obesity due to excess calories; F41.9 Anxiety disorder, unspecified; F32.9 Major depressive disorder, single episode, unspecified; G47.33 Obstructive sleep apnea (adult) (pediatric); E11.42 Type 2 diabetes mellitus with diabetic polyneuropathy; F17.210 Nicotine dependence, cigarettes, uncomplicated; M79.7 Fibromyalgia; E86.0 Dehydration; L89.622 Pressure ulcer of left heel, stage 2; L89.612 Pressure ulcer of right heel, stage 2; Z98.51 Tubal ligation status; Z90.710 Acquired absence of both cervix and uterus; Z79.4 Long term (current) use of insulin; Z88.2 Allergy status to sulfonamides; Z88.1 Allergy status to other antibiotic agents; Z88.6 Allergy status to analgesic agent; Z88.8 Allergy status to other drugs, medicaments and biological substances
CPT/HCPCS: 36415; 36430; 36600; 70450; 71045; 71275; 80048; 80053; 80202; 80305; 81001; 82550; 82607; 82728; 82746; 82803; 82962; 83540; 83550; 83605; 83735; 83880; 84100; 84145; 84484; 85025; 85610; 85730; 86140; 86850; 86900; 86901; 86922; 87040; 87070; 87076; 87077; 87088; 87186; 87205; 93005; 94010; 96372; 97163; 97530-GP; J0692; J0878; J1170; J1200; J1335; J1644; J1650; J2020; J2185; J2250; J2405; J2550; J2930; J3010; J3370; J3475; J7030; J7040; J7050; J7120; P9016; Q9967; U0002

== ENCOUNTER 2020-12-09 14:28 | Emergency (ER) | payer MEDICARE, OTHER ==
[~2020-12-09 14:28] MED LIST changes: +AQUAPHOR396 GM TOP; +ASCORBIC ACID500 MG PO; +CLARITIN10 MG PO; +ELIQUIS5 MG PO; +FLORASTOR250 MG PO; +HYDROCODON-ACE1 EAC6 PO; +LIDOCAINE PAIN1 EACH TOP; +MULTI-VITAMIN1 EACH PO; +VICODIN 10/3251 EACH PO; +VITAMIN D31250 MC1 PO; +ZINC50 MG PO
[2020-12-09 16:02] LABS: BASOPHIL 0.4 % (0-2); EOSINOPHIL 3.9 % (0-5); HCT 25.8 % (37.0-47.0); HGB 7.8 g/dl (12.5-16.0); LYMPHOCYTE 15.5 % (15-48); MCH 22.7 pg (25.0-31.0); MCHC 30.2 g/dL (32.0-36.0); MONOCYTE 7.6 % (0-12); MPV 9.3 fL (6.0-9.5); NRBC 0; PLT 438 K/uL (150-400); RBC 3.44 M/uL (4.20-5.40); RDW 22.5 % (11.5-14.0); WBC 14.8 K/uL (4.0-10.5)
[2020-12-09 16:18] LABS: BUN/CREAT RATIO (CALC) 33.3 RATIO; CREATININE 0.75 mg/dL (0.51-0.95); POTASSIUM 3.7 mmol/L (3.5-5.1)
== END 2020-12-09 17:56 | disposition home or self-care (01) ==
LOC: FER 14:28
PROVIDERS: Emergency Medicine
DX: L89.159 Pressure ulcer of sacral region, unspecified stage (principal); L89.229 Pressure ulcer of left hip, unspecified stage; G89.29 Other chronic pain; D72.819 Decreased white blood cell count, unspecified; E66.01 Morbid (severe) obesity due to excess calories; I48.91 Unspecified atrial fibrillation; E11.9 Type 2 diabetes mellitus without complications; Z88.2 Allergy status to sulfonamides; Z88.1 Allergy status to other antibiotic agents; Z88.5 Allergy status to narcotic agent; Z88.8 Allergy status to other drugs, medicaments and biological substances
CPT/HCPCS: 36415; 80048; 83605; 85025; 99283

== ENCOUNTER 2020-12-15 14:26 | Inpatient (IN) | payer MEDICARE, OTHER ==
[2020-12-15 15:30] LABS: BASOPHIL 0.3 % (0-2); EOSINOPHIL 3.8 % (0-5); HCT 24.6 % (37.0-47.0); HGB 7.3 g/dl (12.5-16.0); MCH 22.5 pg (25.0-31.0); MCHC 29.7 g/dL (32.0-36.0); MCV 75.9 fL (78.0-100.0); MONOCYTE 8.6 % (0-12); MPV 10.6 fL (6.0-9.5); NEUTROPHIL 69.3 % (41-80); NRBC 0; PLT 437 K/uL (150-400); RBC 3.24 M/uL (4.20-5.40); WBC 18.3 K/uL (4.0-10.5)
[2020-12-15 15:43] LABS: BILIRUBIN NEGATIVE (NEGATIVE); BLOOD 3+ Ery/uL (NEGATIVE); CLARITY CLEAR (CLEAR); COLOR YELLOW (YELLOW); GLUCOSE (U) TRACE mg/dL (NORMAL); LEUKOCYTES 2+ Leu/uL (NEGATIVE); NITRITE POSITIVE (NEGATIVE); PROTEIN 3+ mg/dL (NEGATIVE)
[2020-12-15 15:51] LABS: BACTERIA 1+; URINARY WBC 20-50
[2020-12-15 16:09] LABS: ALBUMIN 1.7 g/dL (3.4-5.0); BILIRUBIN - TOTAL 0.2 mg/dL (0.2-1.0); BUN/CREAT RATIO (CALC) 28.5 RATIO; CREATININE 1.3 mg/dL (0.51-0.95); GLOBULIN (CALCULATION) 5.5 g/dL; POTASSIUM 4.3 mmol/L (3.5-5.1); TOTAL PROTEIN 7.2 g/dL (6.4-8.2)
[2020-12-15 17:59] LABS: LACTIC ACID 0.7 mmol/L (0.4-1.9)
[2020-12-16 04:29] LABS: BASOPHIL 0.4 % (0-2); EOSINOPHIL 3.2 % (0-5); HCT 21.7 % (37.0-47.0); LYMPHOCYTE 12.3 % (15-48); MCH 22.5 pg (25.0-31.0); MCHC 29.5 g/dL (32.0-36.0); MCV 76.4 fL (78.0-100.0); MONOCYTE 8.6 % (0-12); MPV 10.2 fL (6.0-9.5); NEUTROPHIL 73.8 % (41-80); NRBC 0; PLT 356 K/uL (150-400); RBC 2.84 M/uL (4.20-5.40); RDW 22.4 % (11.5-14.0); WBC 16.7 K/uL (4.0-10.5)
[2020-12-16 04:55] LABS: HGB 6.4 g/dl (12.5-16.0)
[2020-12-16 05:00] LABS: ALBUMIN 1.5 g/dL (3.4-5.0); BILIRUBIN - TOTAL 0.3 mg/dL (0.2-1.0); BUN/CREAT RATIO (CALC) 24.5 RATIO; CREATININE 1.51 mg/dL (0.51-0.95); GLOBULIN (CALCULATION) 5.1 g/dL; MAGNESIUM 1.6 mg/dL (1.8-2.4); PHOSPHORUS 7.5 mg/dL (2.6-4.7); POTASSIUM 4.2 mmol/L (3.5-5.1); TOTAL PROTEIN 6.6 g/dL (6.4-8.2)
[2020-12-17 03:47] LABS: BASOPHIL 0.7 % (0-2); EOSINOPHIL 4.8 % (0-5); HCT 28.7 % (37.0-47.0); LYMPHOCYTE 18.7 % (15-48); MCH 22.8 pg (25.0-31.0); MCHC 30.3 g/dL (32.0-36.0); MCV 75.3 fL (78.0-100.0); MPV 9.9 fL (6.0-9.5); NEUTROPHIL 64.7 % (41-80); NRBC 0; PLT 355 K/uL (150-400); RBC 3.81 M/uL (4.20-5.40); RDW 21.6 % (11.5-14.0); WBC 13.6 K/uL (4.0-10.5)
[2020-12-17 03:49] LABS: HGB 8.7 g/dl (12.5-16.0)
[2020-12-17 04:14] LABS: ALBUMIN 1.5 g/dL (3.4-5.0); CREATININE 1.07 mg/dL (0.51-0.95); GLOBULIN (CALCULATION) 4.7 g/dL; POTASSIUM 3.9 mmol/L (3.5-5.1); TOTAL PROTEIN 6.2 g/dL (6.4-8.2)
[2020-12-17 04:16] LABS: BILIRUBIN - TOTAL 0.2 mg/dL (0.2-1.0); MAGNESIUM 1.5 mg/dL (1.8-2.4)
--- NOTE | 2020-12-17 16:57 | NUR ---
PT IS DEPENDENDENT ON ADL'S FROM [facility]; PLEASE ADVISE OF ANY DISCHARGE NEEDS
--- NOTE | 2020-12-17 17:02 | NUR ---
12/17/2020 Ngozi Gill at [facility] reports that [facility] will accept back.
[2020-12-18 04:37] LABS: BASOPHIL 0.4 % (0-2); EOSINOPHIL 5.1 % (0-5); HCT 28.9 % (37.0-47.0); HGB 8.8 g/dl (12.5-16.0); LYMPHOCYTE 18.7 % (15-48); MCH 23.2 pg (25.0-31.0); MCHC 30.4 g/dL (32.0-36.0); MCV 76.1 fL (78.0-100.0); MONOCYTE 8.4 % (0-12); MPV 10.3 fL (6.0-9.5); NEUTROPHIL 65.6 % (41-80); NRBC 0; PLT 370 K/uL (150-400); RDW 21.6 % (11.5-14.0); RETICULOCYTE COUNT 1.2 % (1.0-2.0); WBC 13.9 K/uL (4.0-10.5)
[2020-12-18 05:35] LABS: CREATININE 0.74 mg/dL (0.51-0.95); FOLIC ACID (SERUM) 9.8 ng/mL (8.6-58.9); MAGNESIUM 2.1 mg/dL (1.8-2.4); POTASSIUM 3.8 mmol/L (3.5-5.1)
[2020-12-19 05:42] LABS: BASOPHIL 0.3 % (0-2); EOSINOPHIL 0.1 % (0-5); HGB 9.1 g/dl (12.5-16.0); LYMPHOCYTE 11.4 % (15-48); MCH 22.9 pg (25.0-31.0); MCHC 30.3 g/dL (32.0-36.0); MCV 75.6 fL (78.0-100.0); MPV 10.4 fL (6.0-9.5); NEUTROPHIL 84.1 % (41-80); NRBC 0; PLT 389 K/uL (150-400); RBC 3.97 M/uL (4.20-5.40); RDW 21.1 % (11.5-14.0); WBC 14.5 K/uL (4.0-10.5)
[2020-12-19 06:27] LABS: BUN/CREAT RATIO (CALC) 39.1 RATIO; CREATININE 0.46 mg/dL (0.51-0.95); POTASSIUM 4.3 mmol/L (3.5-5.1)
--- NOTE | 2020-12-19 12:24 | NUR ---
12/19/20 Ms. Retana will be discharged to [place] today per Dr. Bullard.
[2020-12-19] MEDS ORDERED: AMOX TR-K CLV1 EAC4 PO (13:21)
[2020-12-19] MEDS ORDERED: PERCOCET 10-321 EACH PO (14:09)
[2020-12-19] MEDS ORDERED: LYRICA 50MG CAP50 MG PO (14:22)
== END 2020-12-19 16:40 | DRG 698 ==
LOC: FER 14:26 → FMS 18:54
PROVIDERS: Emergency Medicine; Nurse Practitioner; ADMIT Internal Medicine
PROC: 8E0ZXY6 Isolation (ICD-10-PCS; 2020-12-15)
PROC: 30233N1 Transfusion of Nonautologous Red Blood Cells into Peripheral Vein, Percutaneous Approach (ICD-10-PCS; principal; 2020-12-16)
DX: T83.518A Infection and inflammatory reaction due to other urinary catheter, initial encounter (principal); L89.893 Pressure ulcer of other site, stage 3; L89.154 Pressure ulcer of sacral region, stage 4; L89.324 Pressure ulcer of left buttock, stage 4; A41.9 Sepsis, unspecified organism; R65.20 Severe sepsis without septic shock; G93.41 Metabolic encephalopathy; U07.1 COVID-19; N30.00 Acute cystitis without hematuria; N17.9 Acute kidney failure, unspecified; Z68.42 Body mass index [BMI] 45.0-49.9, adult; J96.10 Chronic respiratory failure, unspecified whether with hypoxia or hypercapnia; M62.3 Immobility syndrome (paraplegic); L89.622 Pressure ulcer of left heel, stage 2; L89.612 Pressure ulcer of right heel, stage 2; E83.42 Hypomagnesemia; E66.01 Morbid (severe) obesity due to excess calories; D64.9 Anemia, unspecified; Z86.711 Personal history of pulmonary embolism; Z79.01 Long term (current) use of anticoagulants; F41.9 Anxiety disorder, unspecified; F32.9 Major depressive disorder, single episode, unspecified; E11.42 Type 2 diabetes mellitus with diabetic polyneuropathy; Z79.4 Long term (current) use of insulin; M79.7 Fibromyalgia; E78.5 Hyperlipidemia, unspecified; I48.91 Unspecified atrial fibrillation; I10 Essential (primary) hypertension; Z79.899 Other long term (current) drug therapy; Z88.6 Allergy status to analgesic agent; Z88.1 Allergy status to other antibiotic agents; E03.9 Hypothyroidism, unspecified; G89.4 Chronic pain syndrome; Z90.710 Acquired absence of both cervix and uterus; Z98.51 Tubal ligation status
CPT/HCPCS: 36415; 36430; 80048; 80053; 80202; 81001; 82607; 82746; 82962; 83540; 83550; 83605; 83735; 83880; 84100; 84145; 85025; 86850; 86900; 86901; 86922; 87040; 87076; 87077; 87088; 87186; J1200; J2543; J2916; J2920; J3370; J3420; J3475; J7030; J7050; P9016; U0002

== ENCOUNTER 2020-12-24 11:27 | Inpatient (IN) | payer MEDICARE, OTHER ==
[~2020-12-24 11:27] MED LIST changes: +AMOX TR-K CLV1 EAC4 PO; +PERCOCET 10-321 EACH PO
[2020-12-24 13:35] LABS: BASOPHIL 0.5 % (0-2); EOSINOPHIL 3.8 % (0-5); HCT 30.5 % (37.0-47.0); HGB 8.8 g/dl (12.5-16.0); LYMPHOCYTE 17.9 % (15-48); MCHC 28.9 g/dL (32.0-36.0); MCV 79.8 fL (78.0-100.0); MONOCYTE 7.9 % (0-12); MPV 11.2 fL (6.0-9.5); NEUTROPHIL 68.4 % (41-80); NRBC 0; PLT 348 K/uL (150-400); RBC 3.82 M/uL (4.20-5.40); RDW 22.5 % (11.5-14.0); WBC 18.9 K/uL (4.0-10.5)
[2020-12-24 13:41] LABS: ALBUMIN 1.8 g/dL (3.4-5.0); BILIRUBIN - TOTAL 0.2 mg/dL (0.2-1.0); BUN/CREAT RATIO (CALC) 16.6 RATIO; CREATININE 1.75 mg/dL (0.51-0.95); GLOBULIN (CALCULATION) 5.4 g/dL; POTASSIUM 3.9 mmol/L (3.5-5.1); TOTAL PROTEIN 7.2 g/dL (6.4-8.2)
[2020-12-24 13:52] LABS: BILIRUBIN NEGATIVE (NEGATIVE); BLOOD 3+ Ery/uL (NEGATIVE); CLARITY CLOUDY (CLEAR); COLOR YELLOW (YELLOW); GLUCOSE (U) NORMAL (NORMAL); LEUKOCYTES 2+ Leu/uL (NEGATIVE); NITRITE NEGATIVE (NEGATIVE); PROTEIN 1+ mg/dL (NEGATIVE); SPECIFIC GRAVITY >=1.030 (1.001-1.030); UROBILINOGEN 0.2 mg/dL (0.2-1.0)
[2020-12-24 14:05] LABS: URINARY WBC TNTC
[2020-12-24 14:06] LABS: BACTERIA 3+; URINARY RBC 20-50; YEAST PRESENT
[2020-12-24 16:06] LABS: CORONAVIRUS 2019 SARS-COV-2 POSITIVE (NEGATIVE); INFLUENZA A NAA NEGATIVE (NEGATIVE)
[2020-12-24] MEDS ORDERED: PROBIOTIC250 MG PO (17:14)
[2020-12-25 03:41] LABS: BASOPHIL 0.4 % (0-2); EOSINOPHIL 3.8 % (0-5); HCT 27.7 % (37.0-47.0); HGB 8.1 g/dl (12.5-16.0); LYMPHOCYTE 16.1 % (15-48); MCH 22.8 pg (25.0-31.0); MCHC 29.2 g/dL (32.0-36.0); MONOCYTE 7.5 % (0-12); MPV 10.9 fL (6.0-9.5); NEUTROPHIL 71.3 % (41-80); NRBC 0; PLT 292 K/uL (150-400); RBC 3.55 M/uL (4.20-5.40); RDW 21.5 % (11.5-14.0); WBC 14.1 K/uL (4.0-10.5)
[2020-12-25 03:57] LABS: BUN/CREAT RATIO (CALC) 30.4 RATIO; CREATININE 0.79 mg/dL (0.51-0.95); POTASSIUM 3.5 mmol/L (3.5-5.1)
--- NOTE | 2020-12-25 15:41 | NUR ---
12/25/20 [facility] will accept patient back per Bailey Feng. Discussion took place with Ms. Feng and Dr. Delgado at [facility]. Ms. Retana has had 6 admissions since 08/2021. Dr. Delgado reports pat to be seen by herself or the DIRECTOR OF PEOPLE 1 - 2 times per week. Inaddition to the Wound Care MD seeing her once a week. They are able to increase the provider visits. Dr. Delgado suggested an [facility] admission. - Jessy Epstein discussed with Dr. Rebollar. - A referral was made to Ashley Abdi ([phone]) at [facility].
[2020-12-26 04:05] LABS: BASOPHIL 0.6 % (0-2); EOSINOPHIL 4.9 % (0-5); HCT 28.6 % (37.0-47.0); HGB 8.3 g/dl (12.5-16.0); LYMPHOCYTE 21.4 % (15-48); MCH 22.6 pg (25.0-31.0); MCV 77.9 fL (78.0-100.0); MONOCYTE 9.5 % (0-12); MPV 11.1 fL (6.0-9.5); NEUTROPHIL 62.6 % (41-80); NRBC 0; PLT 333 K/uL (150-400); RBC 3.67 M/uL (4.20-5.40); RDW 21.5 % (11.5-14.0); WBC 12.4 K/uL (4.0-10.5)
[2020-12-26 04:21] LABS: BUN/CREAT RATIO (CALC) 29.3 RATIO; CREATININE 0.58 mg/dL (0.51-0.95); POTASSIUM 3.7 mmol/L (3.5-5.1)
--- NOTE | 2020-12-26 14:42 | NUR ---
PER VIRAL WITH [facility], PT HAS BEEN ACCEPTED AT [facility]. SHE IS HOPING FOR AN ADMISSION TOMORROW. ADVISED DR. REESE OF ACCEPTANCE, HE IS WAITING ON A URINE CULTURE. DAVID ADVISED NURSE FLOWER, OF PT. ACCEPTANCE TO [facility] AND TO PLEASE CHECK ON URINE CULTURE.
[2020-12-26 17:39] LABS: FOLIC ACID (SERUM) 5.1 ng/mL (8.6-58.9)
--- NOTE | 2020-12-27 10:03 | NUR ---
DR. REESE ADVISED THAT PT. CAN BE TRANSFERRED TO [facility] THIS DATE. ADVISED VIRAL AT [facility] THAT PT. CAN BE DISCHARGED THIS DATE. SENT UPDATED PROGRESS NOTES AND UPDATED MED LIST. ADVISED HA, NURSE OF THE TRANSFER TO [facility]. HE ADVISED THAT PATIENT IS AWARE OF THE GOING TO [facility] AND SHE HAS SPOKEN WITH HER SON AND ADVISED HIM. HA IS TO GET THE CHOICE FORM SIGNED BY PATIENT.
[2020-12-27] MEDS ORDERED: DIFLUCAN 100MG100 MG PO (12:28)
[2020-12-27] MEDS ORDERED: CYMBALTA 30MG C30 MG PO (12:28)
[2020-12-27] MEDS ORDERED: REMERON15 MG PO (12:28)
[2020-12-27] MEDS ORDERED: PERCOCET 10-321 EACH PO (12:28)
[2020-12-27] MEDS ORDERED: LYRICA 50MG CAP50 MG PO (12:28)
[2020-12-27] MEDS ORDERED: PROTONIX 40MG T40 MG PO (12:28)
[2020-12-27] MEDS ORDERED: FOLIC ACID1 MG PO (12:28)
--- NOTE | 2020-12-27 14:23 | NUR ---
PT DC'd & TAKEN FROM THE TCU FLOOR VIA EMS BY IBETH @ 9698 - NO ISSUES. PT BEING TRANSFERRED TO [facility] IN [place].
== END 2020-12-27 13:48 | DRG 871 ==
LOC: FER 11:27 → FTCU 15:19
PROVIDERS: Nurse Practitioner Family; ADMIT Internal Medicine
PROC: 8E0ZXY6 Isolation (ICD-10-PCS; principal; 2020-12-24)
DX: A41.9 Sepsis, unspecified organism (principal); J18.9 Pneumonia, unspecified organism; L89.894 Pressure ulcer of other site, stage 4; L89.154 Pressure ulcer of sacral region, stage 4; L89.324 Pressure ulcer of left buttock, stage 4; G93.41 Metabolic encephalopathy; U07.1 COVID-19; B37.49 Other urogenital candidiasis; N17.9 Acute kidney failure, unspecified; J96.11 Chronic respiratory failure with hypoxia; I48.0 Paroxysmal atrial fibrillation; D64.9 Anemia, unspecified; E11.9 Type 2 diabetes mellitus without complications; L89.622 Pressure ulcer of left heel, stage 2; L89.612 Pressure ulcer of right heel, stage 2; F32.9 Major depressive disorder, single episode, unspecified; I10 Essential (primary) hypertension; E78.5 Hyperlipidemia, unspecified; F41.9 Anxiety disorder, unspecified; E11.40 Type 2 diabetes mellitus with diabetic neuropathy, unspecified; M79.7 Fibromyalgia; E03.9 Hypothyroidism, unspecified; G89.4 Chronic pain syndrome; Z86.711 Personal history of pulmonary embolism
CPT/HCPCS: 36415; 36600; 70551; 71045; 80048; 80053; 80202; 81001; 82085; 82175; 82300; 82550; 82607; 82746; 82803; 82962; 83605; 83655; 83825; 85025; 85379; 87040; 87076; 87088; 87186; 94640; 99285; J0692; J0696; J1170; J2405; J3370; J7030; J7050; U0002